=== PATIENT | male | born 1950 | race African-American/Black ===

== ENCOUNTER 2024-08-29 13:49 | Emergency (ER) | payer MEDICARE ==
[~2024-08-29] VITALS: Ht 165.1 cm; Wt 52.0 kg
[2024-08-29 14:00] VITALS: O2SAT 98
[2024-08-29] MEDS ORDERED: AMLODIPINE 10MG TABLET PO ONE (14:15)
[2024-08-29] MEDS: AMLODIPINE 5MG TABLET PO NR (14:56)
[2024-08-29 18:00] VITALS: BP 170/70; PULSE 64; RESP 13; TEMP 37.00296; O2SAT 95
== END 2024-08-29 19:21 | disposition home or self-care (01) ==
LOC: EDBD 13:49 → ER 13:49
DX: F10.129 Alcohol abuse with intoxication, unspecified (principal); R51.9 Headache, unspecified; I10 Essential (primary) hypertension; Y90.9 Presence of alcohol in blood, level not specified
CPT/HCPCS: 99284